=== PATIENT | female | born 1940 | race Two or more races ===

== ENCOUNTER 2018-12-08 09:35 | Inpatient (IN) | payer MEDICARE, BC ==
[~2018-12-08] VITALS: Ht 157.5 cm; Wt 72.6 kg
--- NOTE | 2018-12-08 09:50 | NUR ---
Patient DANIELLA from [facility], came in due to aggressive behavior, striking out to staff. On [place] air, breathing evenly and unlabored. Kept comfortable, will continue to monitor accordingly.
[2018-12-08] MEDS ORDERED: DEXL60CA3 PO (09:56)
[2018-12-08] MEDS ORDERED: MAGN400O6 PO (09:56)
[2018-12-08] MEDS ORDERED: CALC-7 PO (09:56)
[2018-12-08] MEDS ORDERED: ARIP2TAB3 PO (09:56)
[2018-12-08] MEDS ORDERED: ATOR40TA PO (09:56)
[2018-12-08] MEDS ORDERED: NA P133E RC (09:56)
[2018-12-08] MEDS ORDERED: FERR325T23 PO (09:56)
[2018-12-08] MEDS ORDERED: SENN-168 PO (09:56)
[2018-12-08] MEDS ORDERED: ACET-868 PO (09:56)
[2018-12-08] MEDS ORDERED: LORA0.5T PO (09:56)
[2018-12-08] MEDS ORDERED: AMLO10TA7 PO (09:56)
[2018-12-08] MEDS ORDERED: DIVA125T2 PO (09:56)
[2018-12-08] MEDS ORDERED: MEMA10TA PO (09:56)
[2018-12-08] MEDS ORDERED: ALLO100T PO (09:56)
[2018-12-08] MEDS ORDERED: RIVA10TA PO (09:56)
--- NOTE | 2018-12-08 10:00 | NUR ---
CRISIS TEAM PAGED.
--- NOTE | 2018-12-08 10:01 | NUR ---
SPOKE TO BRANDY, ON HER WAY TO SEE THE PATIENT.
[2018-12-08 10:03] LABS: BASOPHILS # (AUTO) 0.1 /CMM (0.0-0.2); BASOPHILS % (AUTO) 0.7 % (0.0-2.0); EOSINOPHILS % (AUTO) 1.6 % (0.0-6.0); HEMATOCRIT 35 % (33-45); HEMOGLOBIN 11.6 g/dL (11.5-14.8); LYMPHOCYTES # (AUTO) 1.2 /CMM (0.8-4.8); LYMPHOCYTES % (AUTO) 15.3 % (20.0-44.0); MEAN CORPUSCULAR HGB CONC 33 g/dl (31.0-36.0); MEAN CORPUSCULAR VOLUME 89 fL (82-100); MONOCYTES # (AUTO) 1.1 /CMM (0.1-1.30); MONOCYTES % (AUTO) 13.1 % (2.0-12.0); NEUTROPHILS # (AUTO) 5.6 /CMM (1.8-8.9); NEUTROPHILS % (AUTO) 69.3 % (43.0-81.0); PLATELET COUNT (AUTO) 182 /CMM (150-450); RED BLOOD CELL COUNT(AUTO) 3.91 MIL/uL (4.0-5.2); WHITE BLOOD COUNT (AUTO) 8.1 K/uL (4.3-11.0)
[2018-12-08 10:11] LABS: CALCIUM, SERUM 8.5 mg/dL (8.5-10.1); CARBON DIOXIDE 33 mmol/L (21-32); CHLORIDE 105 mmol/L (98-107); CREATININE 0.5 mg/dL (0.6-1.3); GLUCOSE 93 mg/dL (74-106); POTASSIUM 3.8 mmol/L (3.5-5.1); SODIUM SERUM 140 mmol/L (136-145); UREA NITROGEN, BLOOD 8 mg/dL (7-18)
[2018-12-08 10:17] LABS: ALANINE AMINOTRANSFERASE 10 U/L (12-78); ALBUMIN 3.2 g/dL (3.4-5.0); ALKALINE PHOSPHATASE 135 U/L (46-116); ASPARTATE AMINOTRANSFERASE 13 U/L (15-37); BILIRUBIN,DIRECT 0.2 mg/dL (0.0-0.2); BILIRUBIN,TOTAL 0.8 mg/dL (0.2-1.0); TOTAL PROTEIN, SERUM 6.8 g/dL (6.4-8.2)
[2018-12-08 10:18] LABS: ACETAMINOPHEN 0 ug/ml (10-30); ALCOHOL, BLOOD < 3 mg/dL (0-0); SALICYLATE < 2.8 mg/dL (2.8-20.0)
[2018-12-08 10:20] LABS: APPEARANCE,URINE Cloudy (CLEAR); BILIRUBIN,URINE Negative (NEGATIVE); BLOOD, URINE Small Ery/uL (NEGATIVE); COLOR,URINE Yellow (YELLOW); KETONES,URINE Negative (NEGATIVE); LEUKOCYTE ESTERASE ,URINE Large (NEGATIVE); NITRITE, URINE Negative (NEGATIVE); PROTEIN,URINE 30 mg/dl (NEGATIVE); UGLUCOSE Negative (NEGATIVE)
[2018-12-08 10:28] LABS: BACTERIA,URINE Moderate /HPF (None Seen); SQUAMOUS EPITHELIAL CELL,UR Few /HPF (None Seen); WBC,URINE 80-100 /HPF (0-3)
[2018-12-08] MEDS ORDERED: CEPHALEXIN MONOHYDRATE 500 MG CAPSULE PO ONE ×2 (10:47→11:00)
--- NOTE | 2018-12-08 11:03 | NUR ---
PT ENDORSED TO ME BY INDIGO OWUSU. CURRENTLY SLEEPING, VSS. AWAITING PSYCH EVAL BY METAL HANGER. WILL CONT TO MONITOR.
--- NOTE | 2018-12-08 11:29 | NUR ---
ABLE SEAMAN BRANDY AT BEDSIDE FOR EVAL.
--- NOTE | 2018-12-08 12:48 | NUR ---
REPORT GIVEN TO INDIGO DUMONT FOR GPS 211
--- NOTE | 2018-12-08 13:10 | NUR ---
PT TRANSFERRED TO UNIT VIA WC
[2018-12-08] MEDS ORDERED: BLOOD SUGAR DIAGNOSTIC 1 EACH STRIP IN ONE (13:30)
[2018-12-08] MEDS ORDERED: MAGNESIUM HYDROXIDE 30 ML UDC PO PRN (13:30)
[2018-12-08 13:46] VITALS: BP 124/80
[2018-12-08 16:00] VITALS: BP 112/59
[2018-12-08] MEDS ORDERED: NA PHOS,M-B/NA PHOS,DI-BA 1 EA ENEMA RC PRN (17:30)
--- NOTE | 2018-12-08 18:12 | NUR ---
DIESEL ENGINE ENGINEER NOTE: PATIENT IS A 78 YEAR OLD FEMALE ADMITTED TO THE HOSPITAL BY AMBULANCE ADMITTED ON A 5150 FOR DTO AND GD. PER HOLD "WHEN INTERVIEWED FACE TO FACE AT BEDSIDE VIKTOR WAS TEARFUL AT TIMES SHE IS RAMBLING AND TANGENTIAL. 'THE AERIAL PLANTING AND CULTIVATION MANAGER DOES NOT CARE ABOUT MY OPINION. HE IS ETHNIC TYPE AND CREEPY AND I SAID HE WAS A LOSER. I GET PISSED WHEN SOMEONE TAKES ADVANTAGE AND GOES IN MY CUPBOARDS.' STAFF TUSHAR HARDY RN REPORTS THAT VIKTOR WAS BLOCKING THE DOORMATS WITH HER WHEELCHAIR. SHE STRUCK OUT AT STAFF AND SHE WAS REFUSING TO COOPERATE. SHE CANNOT BE MANAGED IN HER CURRENT CONDITION." UPON FACE TO FACE ASSESSMENT, PATIENT IS ALERT AND ORIENTED X2. CONFUSED AND DISORGANIZED THOUGHTS. VSS. NO ACUTE DISTRESS NOTED. NO COMPLAINTS. PATIENT ALLOWED ME TO CHECK HER SKIN. BRUISING NOTED AT LEFT INNER THIGH AND ON BILATERAL ARMS ALONG WITH A FEW ABRASIONS BUT OTHERWISE INTACT. VENTRAL HERNIA NOTED ON UMBILICUS. PATIENT REFUSED PHOTOS OF WOUNDS AND FACE. PATIENT IS NEEDY, DISRUPTIVE, EASILY AGITATED. LABILE MOOD. PATIENT DENIES ANY SI/HI AT THIS TIME. FALL RISK. PATIENT HAS BLE WEAKNESS. UPPER BODY STRENGTH IN TACT. PT EVAL, ST EVAL ORDERED. MRSA SWAB DONE. CODE STATUS ORDERED. ALLERGIES NOTED. HANDBOOK GIVEN TO PATIENT WITH PATIENT'S RIGHTS AND GUIDE TO PRESCRIPTIONS. CONSENTS SIGNED. DR LARA NOTIFIED OF PATIENT'S ADMISSION WITH ADMITTING ORDERS. MED RECON COMPLETE. DEMAR (NIECE'S BOYFRIEND) WAS CONTACTED AND INFORMED OF PATIENT'S ADMISSION TO THE HOSPITAL. WILL INFORM ONCOMING NURSE TO TRY TO TAKE A PHOTO OF PATIENT ALONG WITH PHOTOS OF WOUNDS.
[2018-12-08] MEDS: CEPHALEXIN MONOHYDRATE 500 MG CAPSULE PO SCH (18:46)
--- NOTE | 2018-12-08 19:25 | NUR ---
GPS RN NOTES RECEIVED PT ON GEROCHAIR. AGITATED, CONFUSED, SHOUTING. WILL MONITOR PT BEHAVIOR CLOSELY.
[2018-12-08 19:59] VITALS: BP 114/81
--- NOTE | 2018-12-08 20:25 | NUR ---
gps rn notes pt refusing wound picture. wound consultation ordered.
[2018-12-08] MEDS: MEMANTINE HCL 5 MG TABLET PO SCH (21:23)
[2018-12-08] MEDS: SENNOSIDES 8.6 MG TABLET PO SCH (21:23)
[2018-12-08] MEDS: ATORVASTATIN 40 MG TABLET PO SCH (21:23)
[2018-12-08] MEDS: RIVAROXABAN 10 MG TABLET PO SCH (21:25)
[2018-12-08] MEDS: TEMAZEPAM 7.5 MG CAPSULE PO PRN (22:43)
[2018-12-09] MEDS: CEPHALEXIN MONOHYDRATE 500 MG CAPSULE PO SCH ×2 (06:06→18:30)
[2018-12-09 08:00] VITALS: BP 128/75
[2018-12-09] MEDS ORDERED: DIVALPROEX SODIUM 125 MG TABLET.DR PO SCH (09:00)
[2018-12-09] MEDS: AMLODIPINE BESYLATE 10 MG TABLET PO SCH (09:23)
[2018-12-09] MEDS: FERROUS SULFATE (325 MG) 325 MG/TAB TABLET PO SCH ×2 (09:23→16:37)
[2018-12-09] MEDS: CALCIUM CARB 250MG /VITAMIN D 1 UDTAB PO SCH (09:24)
[2018-12-09] MEDS: ALLOPURINOL 100 MG TABLET PO SCH (09:25)
[2018-12-09] MEDS: ARIPIPRAZOLE 2 MG TABLET PO SCH ×3 (11:14→18:30)
[2018-12-09] MEDS: OXCARBAZEPINE 150 MG TABLET PO SCH ×2 (11:14→16:37)
--- NOTE | 2018-12-09 14:21 | NUR ---
SW called the pts Yo ([phone]) who is the boyfriend of the niece who stated that the pts niece and him are on the pts directive and believes that the niece would be a better point of contact.
--- NOTE | 2018-12-09 14:39 | NUR ---
SW called the pts eric Orellana ([phone]) and left a voicemail stating that the SW would like to discuss the treatment plan and discharge plan.
[2018-12-09 16:00] VITALS: BP 100/61
--- NOTE | 2018-12-09 16:29 | NUR ---
RN NOTE: PATIENT REMAINS ALERT AWAKE ORIENTED X 1, CONFUSED, FORGETFULNESS. PT MOSTLY REMAINS ON JUNIOR-CHAIR & ON BED. SEEN BY PT, NOT SAFE TO AMBULATE WITH NURSING. DENIES SI/HI. NO FALL/INJURY NOTED. SAFETY MEASURES OBSERVED. CONTINUE WITH PLAN OF CARE.
[2018-12-09] MEDS: LORAZEPAM 0.5 MG TABLET PO PRN (16:37)
[2018-12-09 21:33] VITALS: BP 112/51
[2018-12-09] MEDS: ATORVASTATIN 40 MG TABLET PO SCH (21:57)
[2018-12-09] MEDS: SENNOSIDES 8.6 MG TABLET PO SCH (21:58)
[2018-12-09] MEDS: MEMANTINE HCL 5 MG TABLET PO SCH (21:58)
[2018-12-09] MEDS: RIVAROXABAN 10 MG TABLET PO SCH (21:59)
[2018-12-10] MEDS: LORAZEPAM 0.5 MG TABLET PO PRN ×2 (02:43→15:07)
[2018-12-10] MEDS: CEPHALEXIN MONOHYDRATE 500 MG CAPSULE PO SCH (06:03)
[2018-12-10 08:00] VITALS: BP 109/67
[2018-12-10] MEDS: FERROUS SULFATE (325 MG) 325 MG/TAB TABLET PO SCH ×2 (08:22→16:26)
[2018-12-10] MEDS: CALCIUM CARB 250MG /VITAMIN D 1 UDTAB PO SCH (08:22)
[2018-12-10] MEDS: OXCARBAZEPINE 150 MG TABLET PO SCH ×2 (08:22→16:26)
[2018-12-10] MEDS: ARIPIPRAZOLE 2 MG TABLET PO SCH ×3 (08:23→16:27)
[2018-12-10] MEDS: ALLOPURINOL 100 MG TABLET PO SCH (08:23)
[2018-12-10] MEDS: AMLODIPINE BESYLATE 10 MG TABLET PO SCH (08:27)
--- NOTE | 2018-12-10 08:27 | NUR ---
GPS/RN NOTES MEDICATION NORVASC NOT GIVEN AT THIS TIME DUE TO BP BEING LOW 109/67. PATIENT CONTINUES TO REMAIN IN STABLE CONDITION. WILL CONTINUE TO MONITOR.
--- NOTE | 2018-12-10 08:58 | NUR ---
WOUND CARE CONSULT: SEEN PATIENT AT BEDSIDE ,PATIENT PRESENTS WITH RT INNER THIGH BRUISE, BOTH ARMS WITH SMALL MULTIPLE SCABS WITH BRUISING AROUND,PRESENT ON ADMISSION,RECOMMENDATION MADE FOR SKIN PROTECTION , DISCUSSED WITH NURSING STAFF , IN AGREEMENT WITH PLAN OF CARE CURRENT BELINDA SCORE 17 , PATIENT TENDS SCRATCH HER SKIN, WILL SEE PRN Addendum: 12/10/18 at 0905 by HAIDER GALVAN RN Amended: Links added.
--- NOTE | 2018-12-10 09:25 | NUR ---
TOM contacted Tracie ([phone]) from [facility] and confirmed that the pt can return to the facility once she is stable for discharge.
--- NOTE | 2018-12-10 10:30 | NUR ---
SW called the pts eric Orellana ([phone]) and left a voicemail stating that the SW would like to discuss the treatment plan and discharge plan.
--- NOTE | 2018-12-10 12:25 | NUR ---
Initial Discharge Plan: Pt currently resides at [facility] located at [address] [place] [address]; ([phone]). Per pt, she would like to return. SW will work with the pt and the MD regarding appropriate discharge planning. SW will form a safe and proper discharge.
--- NOTE | 2018-12-10 12:28 | NUR ---
Pts niannabella, Reyna ([phone]), called the SW and the SW was able to provide her with information regarding the pts treatment plan and the initial discharge plan. She stated that the pts children are not involved in her case and therefore she would like to be the one who is notified when the pt is discharged from the hospital.
[2018-12-10 16:00] VITALS: BP 107/69
[2018-12-10] MEDS ORDERED: AMOXICILLIN TRIHYDRATE 500 MG CAPSULE PO SCH (16:00)
[2018-12-10] MEDS ORDERED: AMPICILLIN TRIHYDRATE 250 MG CAPSULE PO SCH (17:00)
[2018-12-10] MEDS: AMOXICILLIN TRIHYDRATE 250 MG CAPSULE PO SCH (17:05)
[2018-12-10 20:00] VITALS: BP 120/67
[2018-12-10] MEDS: ATORVASTATIN 40 MG TABLET PO SCH (22:22)
[2018-12-10] MEDS: SENNOSIDES 8.6 MG TABLET PO SCH (22:22)
[2018-12-10] MEDS: MEMANTINE HCL 5 MG TABLET PO SCH (22:22)
[2018-12-10] MEDS: RIVAROXABAN 10 MG TABLET PO SCH (22:23)
[2018-12-11] MEDS: AMOXICILLIN TRIHYDRATE 250 MG CAPSULE PO SCH ×3 (00:41→17:40)
[2018-12-11 08:00] VITALS: BP 140/68
[2018-12-11] MEDS: ARIPIPRAZOLE 2 MG TABLET PO SCH ×3 (08:09→17:40)
[2018-12-11] MEDS: CALCIUM CARB 250MG /VITAMIN D 1 UDTAB PO SCH (08:10)
[2018-12-11] MEDS: FERROUS SULFATE (325 MG) 325 MG/TAB TABLET PO SCH ×2 (08:10→17:39)
[2018-12-11] MEDS: ALLOPURINOL 100 MG TABLET PO SCH (08:10)
[2018-12-11] MEDS: AMLODIPINE BESYLATE 10 MG TABLET PO SCH (08:10)
[2018-12-11] MEDS: OXCARBAZEPINE 150 MG TABLET PO SCH ×2 (08:13→17:39)
[2018-12-11] MEDS ORDERED: ALBUTEROL FS 2.5 MG/3 ML VIAL.NEB NEB PRN (11:00)
[2018-12-11] MEDS: MAG HYDROX/AL HYDROX/SIMETH 30 ML UDC PO PRN (13:04)
[2018-12-11 16:00] VITALS: BP 101/68
[2018-12-11 20:00] VITALS: BP 117/70
[2018-12-11] MEDS: MEMANTINE HCL 5 MG TABLET PO SCH (22:35)
[2018-12-11] MEDS: SENNOSIDES 8.6 MG TABLET PO SCH (22:35)
[2018-12-11] MEDS: ATORVASTATIN 40 MG TABLET PO SCH (22:35)
[2018-12-11] MEDS: TEMAZEPAM 7.5 MG CAPSULE PO PRN (22:36)
[2018-12-11] MEDS: RIVAROXABAN 10 MG TABLET PO SCH (22:36)
[2018-12-12] MEDS: AMOXICILLIN TRIHYDRATE 250 MG CAPSULE PO SCH ×3 (01:26→16:54)
[2018-12-12 07:48] LABS: BASOPHILS % (AUTO) 0.3 % (0.0-2.0); HEMATOCRIT 33 % (33-45); HEMOGLOBIN 11.2 g/dL (11.5-14.8); LYMPHOCYTES # (AUTO) 1.7 /CMM (0.8-4.8); LYMPHOCYTES % (AUTO) 26.7 % (20.0-44.0); MEAN CORPUSCULAR HGB CONC 34 g/dl (31.0-36.0); MEAN CORPUSCULAR VOLUME 88 fL (82-100); MONOCYTES # (AUTO) 0.5 /CMM (0.1-1.30); MONOCYTES % (AUTO) 8.7 % (2.0-12.0); NEUTROPHILS # (AUTO) 3.8 /CMM (1.8-8.9); NEUTROPHILS % (AUTO) 61.3 % (43.0-81.0); PLATELET COUNT (AUTO) 200 /CMM (150-450); WHITE BLOOD COUNT (AUTO) 6.2 K/uL (4.3-11.0)
[2018-12-12 08:00] VITALS: BP 101/66
[2018-12-12 08:13] LABS: CALCIUM, SERUM 8.6 mg/dL (8.5-10.1); CARBON DIOXIDE 29 mmol/L (21-32); CHLORIDE 106 mmol/L (98-107); CREATININE 0.4 mg/dL (0.6-1.3); GLUCOSE 96 mg/dL (74-106); POTASSIUM 3.6 mmol/L (3.5-5.1); SODIUM SERUM 143 mmol/L (136-145); UREA NITROGEN, BLOOD 11 mg/dL (7-18)
[2018-12-12] MEDS: AMLODIPINE BESYLATE 10 MG TABLET PO SCH (08:45)
[2018-12-12] MEDS: ARIPIPRAZOLE 2 MG TABLET PO SCH ×3 (08:45→16:33)
[2018-12-12] MEDS: FERROUS SULFATE (325 MG) 325 MG/TAB TABLET PO SCH ×2 (08:45→16:33)
[2018-12-12] MEDS: ALLOPURINOL 100 MG TABLET PO SCH (08:45)
[2018-12-12] MEDS: OXCARBAZEPINE 150 MG TABLET PO SCH ×3 (08:46→16:34)
[2018-12-12] MEDS: CALCIUM CARB 250MG /VITAMIN D 1 UDTAB PO SCH (09:07)
[2018-12-12 16:00] VITALS: BP 117/58
[2018-12-12 20:00] VITALS: BP 131/68
[2018-12-12] MEDS: ATORVASTATIN 40 MG TABLET PO SCH (21:22)
[2018-12-12] MEDS: SENNOSIDES 8.6 MG TABLET PO SCH (21:23)
[2018-12-12] MEDS: MEMANTINE HCL 5 MG TABLET PO SCH (21:24)
[2018-12-12] MEDS: RIVAROXABAN 10 MG TABLET PO SCH (21:33)
[2018-12-12] MEDS: TEMAZEPAM 7.5 MG CAPSULE PO PRN (23:15)
[2018-12-13] MEDS: AMOXICILLIN TRIHYDRATE 250 MG CAPSULE PO SCH ×3 (00:41→16:13)
[2018-12-13] MEDS: LORAZEPAM 0.5 MG TABLET PO PRN ×2 (00:51→09:35)
[2018-12-13 08:00] VITALS: BP 146/70
[2018-12-13] MEDS: OXCARBAZEPINE 150 MG TABLET PO SCH ×3 (08:28→16:12)
[2018-12-13] MEDS: ARIPIPRAZOLE 2 MG TABLET PO SCH ×3 (08:28→16:12)
[2018-12-13] MEDS: CALCIUM CARB 250MG /VITAMIN D 1 UDTAB PO SCH (08:29)
[2018-12-13] MEDS: FERROUS SULFATE (325 MG) 325 MG/TAB TABLET PO SCH ×2 (08:29→16:12)
[2018-12-13] MEDS: ALLOPURINOL 100 MG TABLET PO SCH (08:29)
[2018-12-13] MEDS: AMLODIPINE BESYLATE 10 MG TABLET PO SCH (09:35)
[2018-12-13 16:00] VITALS: BP 121/57
[2018-12-13 19:43] VITALS: BP 127/58
[2018-12-13] MEDS: MEMANTINE HCL 5 MG TABLET PO SCH (21:03)
[2018-12-13] MEDS: SENNOSIDES 8.6 MG TABLET PO SCH (21:03)
[2018-12-13] MEDS: ATORVASTATIN 40 MG TABLET PO SCH (21:03)
[2018-12-13] MEDS: RIVAROXABAN 10 MG TABLET PO SCH (21:26)
[2018-12-13] MEDS: TEMAZEPAM 7.5 MG CAPSULE PO PRN (21:27)
[2018-12-14] MEDS: AMOXICILLIN TRIHYDRATE 250 MG CAPSULE PO SCH ×2 (00:38→08:54)
[2018-12-14 07:24] LABS: BASOPHILS # (AUTO) 0.1 /CMM (0.0-0.2); BASOPHILS % (AUTO) 0.7 % (0.0-2.0); EOSINOPHILS % (AUTO) 4.2 % (0.0-6.0); HEMATOCRIT 33 % (33-45); LYMPHOCYTES # (AUTO) 1.8 /CMM (0.8-4.8); LYMPHOCYTES % (AUTO) 22.6 % (20.0-44.0); MEAN CORPUSCULAR HGB CONC 34 g/dl (31.0-36.0); MEAN CORPUSCULAR VOLUME 89 fL (82-100); MONOCYTES # (AUTO) 0.7 /CMM (0.1-1.30); MONOCYTES % (AUTO) 9.1 % (2.0-12.0); NEUTROPHILS # (AUTO) 4.9 /CMM (1.8-8.9); NEUTROPHILS % (AUTO) 63.4 % (43.0-81.0); PLATELET COUNT (AUTO) 211 /CMM (150-450); RED BLOOD CELL COUNT(AUTO) 3.68 MIL/uL (4.0-5.2); WHITE BLOOD COUNT (AUTO) 7.8 K/uL (4.3-11.0)
[2018-12-14 07:30] LABS: ALANINE AMINOTRANSFERASE 17 U/L (12-78); ALBUMIN 2.7 g/dL (3.4-5.0); ALKALINE PHOSPHATASE 117 U/L (46-116); ASPARTATE AMINOTRANSFERASE 18 U/L (15-37); BILIRUBIN,TOTAL 0.4 mg/dL (0.2-1.0); CALCIUM, SERUM 8.7 mg/dL (8.5-10.1); CARBON DIOXIDE 28 mmol/L (21-32); CHLORIDE 105 mmol/L (98-107); CREATININE 0.4 mg/dL (0.6-1.3); GLUCOSE 92 mg/dL (74-106); POTASSIUM 3.8 mmol/L (3.5-5.1); SODIUM SERUM 141 mmol/L (136-145); TOTAL PROTEIN, SERUM 6.2 g/dL (6.4-8.2); UREA NITROGEN, BLOOD 10 mg/dL (7-18)
[2018-12-14 08:00] VITALS: BP 102/56
--- NOTE | 2018-12-14 08:35 | NUR ---
Tracie ([phone]) from [facility] contacted the and stated that the facility would prefer not to take the pt back but will if no alternative placement is found.
[2018-12-14] MEDS: CALCIUM CARB 250MG /VITAMIN D 1 UDTAB PO SCH (08:53)
[2018-12-14] MEDS: ARIPIPRAZOLE 2 MG TABLET PO SCH ×3 (08:53→16:58)
[2018-12-14] MEDS: OXCARBAZEPINE 150 MG TABLET PO SCH ×3 (08:53→16:58)
[2018-12-14] MEDS: ALLOPURINOL 100 MG TABLET PO SCH (08:53)
[2018-12-14] MEDS: FERROUS SULFATE (325 MG) 325 MG/TAB TABLET PO SCH ×2 (08:53→16:58)
[2018-12-14] MEDS: AMLODIPINE BESYLATE 10 MG TABLET PO SCH (08:54)
--- NOTE | 2018-12-14 10:50 | NUR ---
Pts niece, Reyna ([phone]), called the SW and asked if she could arrive outside of visiting hours because she is coming from a far distance. SW stated that she would have to receive permission from the charge nurse and then transferred her to the nursing station.
--- NOTE | 2018-12-14 15:29 | NUR ---
Group Note: SW encouraged pt to participate in group therapy on 12/14/18 at 2pm discussing discharge planning. Pt unable to participate due to behavioral disturbance. Pt was yelling and banging her hand on table stating, "Get me out of here!!"
[2018-12-14 16:00] VITALS: BP 129/65
--- NOTE | 2018-12-14 19:30 | NUR ---
GPS RN NOTE, RECEIVED PATIENT AWAKE AND IN JUNIOR CHAIR, NO S/S OR COMPLAINTS OF PAIN AT THIS TIME. PATIENT IS DISPLAYING NO S/S OF APPARENT DISTRESS AT THIS TIME. PATIENT BREATHING IS UNLABORED WITH EQUAL RISE AND FALL OF THE CHEST. PATIENT IS ALERT AND ORIENTED X 1 ON ROOM AIR WITH A SPO2 99 %. PATIENT IS COMPLIANT WITH MEDICATION, DISORGANIZED, CONFUSED, SUSPICIOUS, PARANOID, AND NEEDS CONSTANT REORIENTATION. PATIENT DENIES SUICIDE IDEATIONS AND HOMICIDAL IDEATIONS AT THIS TIME. PATIENT ASSISTED WITH TURNING AND REPOSITIONING Q2 HR AND PRN FOR COMFORT AND CIRCULATION. PATIENT HAS NO NEEDS AT THIS TIME. PATIENT EDUCATED ON THE USE OF THE CALL DOOLEY. PATIENT BED SIDE RAILS UP X 2 FOR SAFETY, BED IS LOCKED AND LOW. WILL CONTINUE TO MONITOR Q15 MIN WITH THE HELP OF STAFF TO MAINTAIN SAFETY.
[2018-12-14 20:16] VITALS: BP 92/60
[2018-12-14] MEDS: SENNOSIDES 8.6 MG TABLET PO SCH (21:50)
[2018-12-14] MEDS: ATORVASTATIN 40 MG TABLET PO SCH (21:50)
[2018-12-14] MEDS: MEMANTINE HCL 5 MG TABLET PO SCH (21:50)
[2018-12-14] MEDS: RIVAROXABAN 10 MG TABLET PO SCH (21:52)
[2018-12-14] MEDS: TEMAZEPAM 7.5 MG CAPSULE PO PRN (23:37)
--- NOTE | 2018-12-14 23:37 | NUR ---
GPS RN NOTE, PATIENT HAS A COMPLAINT OF NOT BEING ABLE TO SLEEP AND IS REQUESTING RESTORIL AT THIS TIME. PATIENT VITAL SIGNS ARE STABLE. GAVE RESTORIL 7.5MG PO HS PRN. WILL REASSESS FOR INSOMNIA AND I WILL CONTINUE TO MONITOR THIS PATIENT.
--- NOTE | 2018-12-15 06:36 | NUR ---
GPS RN NOTE, PATIENT HAS HAD NO URINE OUT PUT IN 12HR. PAGED [facility] AND INFORMED [facility]. BETHANY PEREIRAReva ORDERED TO DO A IN AND OUT SALDANA CATHETER AND SEND A UA TO LAB. ALL ORDERS NOTED AND CARRIED OUT. PATIENT TOLERATED PROCEDURE WELL. WILL CONTINUE TO MONITOR AND WILL ENDORSE TO AM SHIFT NURSE.
[2018-12-15 07:54] LABS: APPEARANCE,URINE CLEAR (CLEAR); BILIRUBIN,URINE NEGATIVE (NEGATIVE); BLOOD, URINE NEGATIVE Ery/uL (NEGATIVE); COLOR,URINE YELLOW (YELLOW); KETONES,URINE NEGATIVE (NEGATIVE); LEUKOCYTE ESTERASE ,URINE NEGATIVE (NEGATIVE); NITRITE, URINE NEGATIVE (NEGATIVE); PROTEIN,URINE NEGATIVE (NEGATIVE); UGLUCOSE NEGATIVE (NEGATIVE); UROBILINOGEN,URINE 0.2 EU/dL (0.2)
[2018-12-15 08:00] VITALS: BP 110/75
[2018-12-15] MEDS: OXCARBAZEPINE 150 MG TABLET PO SCH ×3 (08:06→16:47)
[2018-12-15] MEDS: FERROUS SULFATE (325 MG) 325 MG/TAB TABLET PO SCH ×2 (08:06→16:47)
[2018-12-15] MEDS: ALLOPURINOL 100 MG TABLET PO SCH (08:06)
[2018-12-15] MEDS: AMLODIPINE BESYLATE 10 MG TABLET PO SCH (08:06)
[2018-12-15] MEDS: CALCIUM CARB 250MG /VITAMIN D 1 UDTAB PO SCH (08:06)
[2018-12-15] MEDS: ARIPIPRAZOLE 2 MG TABLET PO SCH ×3 (08:06→16:47)
--- NOTE | 2018-12-15 09:43 | NUR ---
PC Hearing Notification: TOM called the pts eric Orellana ([phone]) and left her a voicemail to inform her that the pt is going to have a PC hearing today and what that entails.
--- NOTE | 2018-12-15 14:27 | NUR ---
GROUP NOTE: SW encouraged pt to participate in group therapy on this present day to discuss "positive coping skills." Pt unable to participate due to behavioral disturbance. Pt was yelling and banging her hand on table and stating, "It's 3am give me my dinner!"
[2018-12-15 16:00] VITALS: BP 103/52
--- NOTE | 2018-12-15 16:17 | NUR ---
Pts niannabella, Reyna ([phone]), called the SW and SW informed her that the pts hold is being upheld and the pts psychiatrist will discharge when the pt is deemed stable.
--- NOTE | 2018-12-15 16:19 | NUR ---
SW faxed two referrals for the pt: [facility] to the fax [phone] and [facility] to the fax [phone].
[2018-12-15 20:01] VITALS: BP 122/88
[2018-12-15] MEDS: ATORVASTATIN 40 MG TABLET PO SCH (20:55)
[2018-12-15] MEDS: SENNOSIDES 8.6 MG TABLET PO SCH (20:55)
[2018-12-15] MEDS: TEMAZEPAM 7.5 MG CAPSULE PO PRN (20:55)
[2018-12-15] MEDS: MEMANTINE HCL 5 MG TABLET PO SCH (20:55)
[2018-12-15] MEDS: RIVAROXABAN 10 MG TABLET PO SCH (20:58)
[2018-12-15] MEDS: LORAZEPAM 0.5 MG TABLET PO PRN (21:00)
[2018-12-16 08:00] VITALS: BP 124/82
[2018-12-16] MEDS: OXCARBAZEPINE 150 MG TABLET PO SCH ×3 (08:21→16:30)
[2018-12-16] MEDS: CALCIUM CARB 250MG /VITAMIN D 1 UDTAB PO SCH (08:21)
[2018-12-16] MEDS: FERROUS SULFATE (325 MG) 325 MG/TAB TABLET PO SCH ×2 (08:21→16:29)
[2018-12-16] MEDS: AMLODIPINE BESYLATE 10 MG TABLET PO SCH (08:22)
[2018-12-16] MEDS: ALLOPURINOL 100 MG TABLET PO SCH (08:22)
[2018-12-16] MEDS: ARIPIPRAZOLE 2 MG TABLET PO SCH ×3 (08:22→16:29)
[2018-12-16 16:00] VITALS: BP 127/97
--- NOTE | 2018-12-16 19:30 | NUR ---
GPS RN INITIAL NOTE PATIENT IN CURRENTLY IN JUNIOR-CHAIR WITH FAMILY AT CHAIRSIDE. PATIENT EATING CAKE FROM [employer]. PATIENT IN NO APPARENT DISTRESS. PATIENT BREATHING EVEN AND UNLABORED NO COUGHING NOTED AFTER SWALLOWING. PATIENT DENIES PAIN AT THIS TIME. PATIENT COOPERATIVE WITH FAMILY PRESENT. PATIENT ATTEMPTED TO BE REORIENTED. SAFETY PRECAUTIONS IN PLACE. RN WILL CONTINUE TO MONITOR FO CHANGES.
[2018-12-16 20:00] VITALS: BP 101/54
[2018-12-16 20:18] VITALS: BP 101/54
[2018-12-16] MEDS: ATORVASTATIN 40 MG TABLET PO SCH (21:15)
[2018-12-16] MEDS: RIVAROXABAN 10 MG TABLET PO SCH (21:16)
[2018-12-16] MEDS: SENNOSIDES 8.6 MG TABLET PO SCH (21:16)
[2018-12-16] MEDS: MEMANTINE HCL 5 MG TABLET PO SCH (21:16)
[2018-12-17 08:00] VITALS: BP 111/57
[2018-12-17] MEDS: CALCIUM CARB 250MG /VITAMIN D 1 UDTAB PO SCH (08:00)
[2018-12-17] MEDS: FERROUS SULFATE (325 MG) 325 MG/TAB TABLET PO SCH ×2 (08:00→17:18)
[2018-12-17] MEDS: ALLOPURINOL 100 MG TABLET PO SCH (08:00)
[2018-12-17] MEDS: OXCARBAZEPINE 150 MG TABLET PO SCH ×3 (08:00→17:18)
[2018-12-17] MEDS: AMLODIPINE BESYLATE 10 MG TABLET PO SCH (08:00)
[2018-12-17] MEDS: ARIPIPRAZOLE 2 MG TABLET PO SCH ×3 (08:00→17:18)
[2018-12-17] MEDS: MAG HYDROX/AL HYDROX/SIMETH 30 ML UDC PO PRN (10:26)
[2018-12-17 11:00] VITALS: BP 108/58
[2018-12-17 11:15] VITALS: BP 90/45
--- NOTE | 2018-12-17 11:18 | NUR ---
RN NOTE: PATIENT C/O CHEST PAIN 10/20, STATES IT RADIATES TO RIGHT SHOULDER UNDERNEATH. CHEST PAIN COMES & GOES SHARP TYPE PER PATIENT. MAALOX GIVEN PER PATIENT REQUEST. PATIENT VERBALIZE IT HAPPENS WITH INDIGESTION BEFORE. PATIENT STARTED MOANING, YELLING LOUD AT STAFF THAT HER PAIN IS NOT GOING AWAY. LALA DNP MADE AWARE, RECEIVED NEW ORDERS STAT EKG & NITROGLYCERIN 0.4 SL [id number] PRN, ORDERS NOTED & CARRIED OUT. CONTINUE TO MONITOR.
[2018-12-17] MEDS ORDERED: NITROGLYCERIN 0.4 MG/TAB BOTTLE SL PRN (11:30)
[2018-12-17 11:32] VITALS: BP 102/56
--- NOTE | 2018-12-17 14:55 | NUR ---
GROUP NOTE: SW encouraged pt to participate in group therapy on this present day to discuss "discharge planning." Pt unable to participate due to behavioral disturbance. Pt was yelling and banging her hand on table and screaming "help help somebody help me!"
[2018-12-17] MEDS: LORAZEPAM 0.5 MG TABLET PO PRN ×2 (15:12→21:31)
[2018-12-17 16:00] VITALS: BP_SYST 131; BP_DIAS 64; BP_DIAS 69
--- NOTE | 2018-12-17 18:05 | NUR ---
RN NOTES; PATIENT REMAINS ALERT AWAKE ORIENTED X 1. ON ROOM AIR, NO RESPIRATORY DISTRESS NOTED. DENIES CHEST PAIN AT THIS TIME. EKG & ECHO TEST DONE TODAY, CARDIOLOGY CONSULT DUE TO EPISODE OF CHEST PAIN. CHEST PAIN RESOLVED WITH 1 DOSE OF NITROGLYCERIN SL. NO FALL/INJURY NOTED. ATIVAN PO GIVEN X 1, DUE TO ANXIETY EPISODE, EFFECTIVE. REMAINS MED COMPLIANT. DENIES SI/HI/AVH. SAFETY MEASURES OBSERVED. CONTINUE WITH PLAN OF CARE.
[2018-12-17 20:00] VITALS: BP 142/63
[2018-12-17] MEDS: MEMANTINE HCL 5 MG TABLET PO SCH (21:30)
[2018-12-17] MEDS: RIVAROXABAN 10 MG TABLET PO SCH (21:30)
[2018-12-17] MEDS: ATORVASTATIN 40 MG TABLET PO SCH (21:31)
[2018-12-17] MEDS: TEMAZEPAM 7.5 MG CAPSULE PO PRN (21:31)
[2018-12-17] MEDS: SENNOSIDES 8.6 MG TABLET PO SCH (21:31)
[2018-12-18 07:53] LABS: CHOLESTEROL 143 mg/dL (<200); HDL CHOLESTEROL 55 mg/dL (40-60); LDL 75 mg/dL (0-99); TRIGLYCERIDES 91 mg/dL (30-150)
[2018-12-18 08:00] VITALS: BP 119/73
[2018-12-18] MEDS: ARIPIPRAZOLE 2 MG TABLET PO SCH ×4 (09:00→16:21)
[2018-12-18] MEDS: ALLOPURINOL 100 MG TABLET PO SCH ×2 (09:00→09:08)
[2018-12-18] MEDS: AMLODIPINE BESYLATE 10 MG TABLET PO SCH (09:00)
[2018-12-18] MEDS: CALCIUM CARB 250MG /VITAMIN D 1 UDTAB PO SCH ×2 (09:00→09:08)
[2018-12-18] MEDS: OXCARBAZEPINE 150 MG TABLET PO SCH ×4 (09:00→16:21)
[2018-12-18] MEDS: FERROUS SULFATE (325 MG) 325 MG/TAB TABLET PO SCH ×3 (09:00→16:21)
--- NOTE | 2018-12-18 09:54 | NUR ---
pt refused all am meds,dr. benton here made aware.
[2018-12-18] MEDS: LORAZEPAM 0.5 MG TABLET PO PRN ×2 (10:12→18:24)
--- NOTE | 2018-12-18 10:12 | NUR ---
yelling out loud,given ativan 0.5 mg po,crushed.
[2018-12-18 16:00] VITALS: BP 131/82
--- NOTE | 2018-12-18 18:39 | NUR ---
given ativan for yelling out and agitation.
--- NOTE | 2018-12-18 19:05 | NUR ---
RN INITIAL NOTES: RECEIVED REPORT FROM BERNARDINO Quezada RN. PT IN BED, AWAKE, A/O X1 CONFUSED, DISORGANIZED, YELLING AND SCREAMING ALL THE TIME PER REPORT FROM [facility]. DENIES ANY SI/HI AT THIS TIME. COMPLIANT WITH MEDS. SAFETY PRECAUTIONS FOR FALL INITIATED, SIDE RAILS UP X3 FOR SAFETY, AND ANY CHANGES IN BEHAVIOR.
[2018-12-18 20:00] VITALS: BP 129/63
[2018-12-18] MEDS: SENNOSIDES 8.6 MG TABLET PO SCH (21:45)
[2018-12-18] MEDS: ATORVASTATIN 40 MG TABLET PO SCH (21:46)
[2018-12-18] MEDS: RIVAROXABAN 10 MG TABLET PO SCH (21:46)
[2018-12-18] MEDS: TEMAZEPAM 7.5 MG CAPSULE PO PRN (21:47)
--- NOTE | 2018-12-18 21:47 | NUR ---
prn restoril: pt requested for sleeping pill, prn restoril administered at this time
[2018-12-18] MEDS: MEMANTINE HCL 5 MG TABLET PO SCH (22:02)
[2018-12-19] MEDS: LORAZEPAM 0.5 MG TABLET PO PRN ×2 (00:34→08:38)
--- NOTE | 2018-12-19 00:35 | NUR ---
PRN ATIVAN: PT AGITATED, ANXIOUS, SCREAMING YELLING, PRN ATIVAN ADMINISTERED AT THIS TIME.
[2018-12-19 08:00] VITALS: BP 127/69
--- NOTE | 2018-12-19 08:30 | NUR ---
rn notes administered ativan 0.5 mg po rn for anxiety per patient request, v/s taken bp 127/69, p-83, continued monitoring.
[2018-12-19] MEDS: ARIPIPRAZOLE 2 MG TABLET PO SCH ×3 (08:37→18:09)
[2018-12-19] MEDS: FERROUS SULFATE (325 MG) 325 MG/TAB TABLET PO SCH ×2 (08:37→18:09)
[2018-12-19] MEDS: CALCIUM CARB 250MG /VITAMIN D 1 UDTAB PO SCH (08:38)
[2018-12-19] MEDS: ALLOPURINOL 100 MG TABLET PO SCH (08:38)
[2018-12-19] MEDS: OXCARBAZEPINE 150 MG TABLET PO SCH ×3 (08:38→18:09)
[2018-12-19] MEDS: AMLODIPINE BESYLATE 10 MG TABLET PO SCH (08:38)
[2018-12-19 15:57] VITALS: BP 105/63
[2018-12-19 20:36] VITALS: BP 157/95
[2018-12-19] MEDS: ATORVASTATIN 40 MG TABLET PO SCH (21:09)
[2018-12-19] MEDS: MEMANTINE HCL 5 MG TABLET PO SCH (21:09)
[2018-12-19] MEDS: SENNOSIDES 8.6 MG TABLET PO SCH (21:09)
[2018-12-19] MEDS: RIVAROXABAN 10 MG TABLET PO SCH (21:11)
[2018-12-19 22:00] VITALS: BP 132/76
[2018-12-20] MEDS: LORAZEPAM 0.5 MG TABLET PO PRN (06:00)
[2018-12-20 08:00] VITALS: BP 136/63
[2018-12-20] MEDS: ARIPIPRAZOLE 2 MG TABLET PO SCH ×4 (09:00→16:29)
[2018-12-20] MEDS: OXCARBAZEPINE 150 MG TABLET PO SCH ×4 (09:00→16:30)
[2018-12-20] MEDS: AMLODIPINE BESYLATE 10 MG TABLET PO SCH ×2 (09:00→09:29)
[2018-12-20] MEDS: ALLOPURINOL 100 MG TABLET PO SCH ×2 (09:00→09:28)
[2018-12-20] MEDS: FERROUS SULFATE (325 MG) 325 MG/TAB TABLET PO SCH ×3 (09:00→16:29)
[2018-12-20] MEDS: CALCIUM CARB 250MG /VITAMIN D 1 UDTAB PO SCH ×2 (09:00→09:30)
--- NOTE | 2018-12-20 15:31 | NUR ---
Group Note: SW encouraged pt to participate in group therapy on 12/20/18 at 2pm to discuss discharge planning. Pt unable to participate due to behavioral disturbance. Pt is not appropriate for group therapy at this time.
[2018-12-20 16:00] VITALS: BP 129/88
--- NOTE | 2018-12-20 16:17 | NUR ---
Rommel ([phone]) from [facility] stated that the pt was accepted to their facility.
--- NOTE | 2018-12-20 16:18 | NUR ---
TOM called the pts eric Orellana ([phone]) and left her a voicemail that informed her that the pt will be discharged on Thursday to [facility].
[2018-12-20 19:58] VITALS: BP 115/58
[2018-12-20] MEDS: ATORVASTATIN 40 MG TABLET PO SCH (21:30)
[2018-12-20] MEDS: MEMANTINE HCL 5 MG TABLET PO SCH (21:31)
[2018-12-20] MEDS: SENNOSIDES 8.6 MG TABLET PO SCH (21:31)
[2018-12-20] MEDS: RIVAROXABAN 10 MG TABLET PO SCH (21:31)
[2018-12-20] MEDS: TEMAZEPAM 7.5 MG CAPSULE PO PRN (21:37)
[2018-12-21 08:00] VITALS: BP 100/83
[2018-12-21] MEDS: ARIPIPRAZOLE 2 MG TABLET PO SCH ×3 (08:00→16:18)
[2018-12-21] MEDS: FERROUS SULFATE (325 MG) 325 MG/TAB TABLET PO SCH ×2 (08:00→16:18)
[2018-12-21] MEDS: CALCIUM CARB 250MG /VITAMIN D 1 UDTAB PO SCH (08:01)
[2018-12-21] MEDS: ALLOPURINOL 100 MG TABLET PO SCH (08:02)
[2018-12-21] MEDS: OXCARBAZEPINE 150 MG TABLET PO SCH ×3 (08:02→16:21)
[2018-12-21] MEDS: AMLODIPINE BESYLATE 10 MG TABLET PO SCH (08:47)
--- NOTE | 2018-12-21 14:36 | NUR ---
Pts eric Reyna ([phone]), asked the SW to contact [facility] where the pt was before because the pt was more comfortable at that facility.
--- NOTE | 2018-12-21 14:37 | NUR ---
TOM called [facility] and spoke to Britney from admissions who stated that her DON is not accepting the pt at this time due to behavior issues.
--- NOTE | 2018-12-21 14:54 | NUR ---
TOM called the pts eric Orellana ([phone]) and informed her that [facility] cannot accommodate the pt at this time and explained that the pts psychiatrist will follow the pt to [facility] and there will be a continuation of care. Pts eric stated that was acceptable.
--- NOTE | 2018-12-21 15:32 | NUR ---
Group Note: SW encouraged pt to participate in group therapy on 12/21/18 to discuss support systems and their impact. Pt unable to participate due to behavioral disturbance. Pt was verbally aggressive with the SW and stated that she did not want to participate and that she does not have anyone in her life.
[2018-12-21 16:00] VITALS: BP 131/61
--- NOTE | 2018-12-21 19:55 | NUR ---
RN NOTES RECEIVED REPORT FROM [facility] RN. FOUND Pt AWAKE, IN REC ROOM WATCHING TV. NO S/S OF ACUTE DISTRESS OR SOB NOTED. RESPIRATIONS EVEN AND UNLABORED WITH EQUAL CHEST RISE AND FALL. Pt IS A/OX1, CONFUSED. CAN COMMUNICATE AND ANSWER QUESTIONS. SAFETY MEASURES IN PLACE. WILL CONTINUE TO MONITOR Pt's CONDITION AND SAFETY THROUGHOUT THE NIGHT.
[2018-12-21 21:09] VITALS: BP 126/73
[2018-12-21] MEDS: SENNOSIDES 8.6 MG TABLET PO SCH (21:36)
[2018-12-21] MEDS: ATORVASTATIN 40 MG TABLET PO SCH (21:36)
[2018-12-21] MEDS: MEMANTINE HCL 5 MG TABLET PO SCH (21:36)
[2018-12-21] MEDS: RIVAROXABAN 10 MG TABLET PO SCH (21:39)
[2018-12-21] MEDS: TEMAZEPAM 7.5 MG CAPSULE PO PRN (22:03)
[2018-12-22] MEDS: ACETAMINOPHEN 325 MG TABLET PO PRN ×2 (02:48→13:38)
--- NOTE | 2018-12-22 02:53 | NUR ---
RN NOTES Pt WAS CRYING AND SCREAMING IN THE MIDDLE OF THE NIGHT YELLING THAT HER LEFT LEG WAS HURTING SO MUCH, PER Pt STATEMENT "FELT LIKE A BULLET WENT THROUGH IT." ADMINISTERED TYLENOL 650MG PER ORDER FOR PRN PAIN.
[2018-12-22 08:00] VITALS: BP 124/73
[2018-12-22] MEDS: ALLOPURINOL 100 MG TABLET PO SCH (08:39)
[2018-12-22] MEDS: OXCARBAZEPINE 150 MG TABLET PO SCH ×3 (08:39→16:10)
[2018-12-22] MEDS: FERROUS SULFATE (325 MG) 325 MG/TAB TABLET PO SCH ×2 (08:39→16:10)
[2018-12-22] MEDS: ARIPIPRAZOLE 2 MG TABLET PO SCH ×3 (08:39→16:10)
[2018-12-22] MEDS: CALCIUM CARB 250MG /VITAMIN D 1 UDTAB PO SCH (08:39)
[2018-12-22] MEDS: AMLODIPINE BESYLATE 10 MG TABLET PO SCH (08:40)
[2018-12-22] MEDS: LORAZEPAM 0.5 MG TABLET PO PRN ×2 (13:37→23:24)
--- NOTE | 2018-12-22 15:45 | NUR ---
Group Note: SW went to patient's room to invite patient to attend today's support group at 2:45pm in the activities room, regarding positive coping mechanisms. Patient presented laying on her bed sleeping. SW attempted to wake patient but they remained sleeping.
[2018-12-22 16:00] VITALS: BP 104/55
[2018-12-22 20:11] VITALS: BP 130/63
[2018-12-22] MEDS: RIVAROXABAN 10 MG TABLET PO SCH (21:15)
[2018-12-22] MEDS: MEMANTINE HCL 5 MG TABLET PO SCH (22:00)
[2018-12-22] MEDS: ATORVASTATIN 40 MG TABLET PO SCH (22:00)
[2018-12-22] MEDS: SENNOSIDES 8.6 MG TABLET PO SCH (22:00)
[2018-12-23] MEDS: TEMAZEPAM 7.5 MG CAPSULE PO PRN (01:31)
[2018-12-23 08:00] VITALS: BP 123/61
--- NOTE | 2018-12-23 09:17 | NUR ---
DR. FARFAN GAVE AN ORDER TO D/C HOLD AND D/C TO [facility] AND TO FOLLOW UP WITH PSYCH AND MEDICAL DOCTORS AND TO CONTINUE SAME MEDS INCLUDING PRN.
[2018-12-23 09:42] VITALS: BP 123/61
[2018-12-23] MEDS: FERROUS SULFATE (325 MG) 325 MG/TAB TABLET PO SCH (09:42)
[2018-12-23] MEDS: ALLOPURINOL 100 MG TABLET PO SCH (09:42)
[2018-12-23] MEDS: OXCARBAZEPINE 150 MG TABLET PO SCH ×2 (09:42→12:27)
[2018-12-23] MEDS: CALCIUM CARB 250MG /VITAMIN D 1 UDTAB PO SCH (09:42)
[2018-12-23] MEDS: ARIPIPRAZOLE 2 MG TABLET PO SCH ×2 (09:42→12:27)
[2018-12-23] MEDS: AMLODIPINE BESYLATE 10 MG TABLET PO SCH (09:42)
--- NOTE | 2018-12-23 15:02 | NUR ---
Discharge Note: Pt is being discharged to [facility] ([facility]) located at [address] [place] [address] ([phone]). Pt will be transported via [facility] (Trip #[id number]) at 3PM. Pt�s niece, Reyna (), is aware of the pts discharge. Upon discharge, the pt appeared to be in a euthymic mood and presented with a distressed affect. Pt denied both suicidal and homicidal ideation as well as auditory and visual hallucinations. Pt will be under the care of his psychiatrist, Dr. Mcconnell, located at [address] [address]; and her food and nutrition services supervisor, Dr. Koch, located at [address] [place] [address]; .
--- NOTE | 2018-12-23 15:09 | NUR ---
SPRUE KNOCKER NOTE: PATIENT IS A 78 YEAR OLD FEMALE DISCHARGED TO [facility] LOCATED AT [address] [place] [address] [phone] . PATIENT IS IN STABLE CONDITION. VSS. NO ACUTE DISTRESS NOTED. NO COMPLAINTS. COMPLIANT WITH MEDICATION MANAGEMENT. COOPERATIVE WITH PLAN OF CARE. PER PATIENT, SHE STATED HAVING A BOWEL MOVEMENT EARLIER THIS MORNING. PSYCHIATRIC TREATMENT PLANS MET. MEDICAL TREATMENT PLANS DEFERRED FOR CONTINUAL MONITORING. DENIES SI/HI VAH AT THE TIME OF DISCHARGE. WOUND PICTURES TAKEN AND DOCUMENTED IN CHART. EDUCATED PATIENT ABOUT AFTERCARE WITH COPY PROVIDED. RETURNED PERSONAL BELONGINGS TO PATIENT. MEDICATIONS RECONCILED WITH LAURENT SOTO AND MD ADOLPH ALONG WITH PSYCHIATRIC DISCHARGE ORDERS. DISCHARGE PAPERWORK SIGNED. FOR FOLLOW UP WITH PSYCHIATRIST DR FARFAN [id number] [facility] [id number] [facility] [id number] BONILLA [id number] [facility] [id number] WITHIN 1 WEEK. PATIENT LEFT THE [facility] AT 1505 VIA AMBULANCE.
== END 2018-12-23 15:05 | DRG 885 ==
LOC: ER 09:40 → GPS 12:08
PROVIDERS: ADMIT Psychiatry & Neurology Psychosomatic Medicine; ATTEND Hospitalist
DX: F25.0 Schizoaffective disorder, bipolar type (principal); F01.51 Vascular dementia, unspecified severity, with behavioral disturbance; N39.0 Urinary tract infection, site not specified; F29 Unspecified psychosis not due to a substance or known physiological condition; Z73.6 Limitation of activities due to disability; F43.10 Post-traumatic stress disorder, unspecified; I05.0 Rheumatic mitral stenosis; G89.4 Chronic pain syndrome; E78.5 Hyperlipidemia, unspecified; D64.9 Anemia, unspecified; I10 Essential (primary) hypertension; I25.10 Atherosclerotic heart disease of native coronary artery without angina pectoris; I48.0 Paroxysmal atrial fibrillation; I70.0 Atherosclerosis of aorta; J44.9 Chronic obstructive pulmonary disease, unspecified; M10.9 Gout, unspecified; E66.9 Obesity, unspecified; Z68.29 Body mass index [BMI] 29.0-29.9, adult; Z79.01 Long term (current) use of anticoagulants; Z87.891 Personal history of nicotine dependence; Z96.653 Presence of artificial knee joint, bilateral; Z62.810 Personal history of physical and sexual abuse in childhood; R13.10 Dysphagia, unspecified
CPT/HCPCS: 36415; 71045-TC; 80048-TC; 80053-TC; 80061-TC; 80076-TC; 80305; 81000-TC; 82962-TC; 84484-TC; 85025-TC; 87081-TC; 87086-TC; 87186-TC; 93307-TC; 97116-TC; 97530-TC; G0480